=== PATIENT | male | born 1945 | race Caucasian/White ===

== ENCOUNTER 2020-07-24 20:53 | Inpatient (IN) | payer MEDICARE, SELFPAY ==
--- NOTE | ~2020-07-24 | CT_ITS ---
EXAMINATION: CT chest high resolution wo vt DATE: 07/24/2020 22:35 INDICATION: Altered mental status, cough and fever TECHNIQUE: Computed tomography (CT) of the chest was performed without intravenous contrast. The dose -length product was 322.96 mGy-cm. Automated exposure control and iterative reconstruction technique were employed. COMPARISON: CT dated 02/04/2018 FINDINGS: Large hiatal hernia. Heart size normal. No significant pleural effusion. Mild emphysema. No endobronchial lesions. Dependent atelectasis. There are scattered calcified granulomas. There is api tory pleural thickening/scarring. No acute focal pneumonia. No pneumothorax. There are accessory splen ules in the left upper abdomen. Small pericardial effusion. There is pancreatic atrophy. There is a l ow-density lesion in the left hepatic lobe, most likely benign cyst or hemangioma. IMPRESSION: 1. No acute cardiopulmonary disease. 2: Large hiatal hernia. Reviewed, dictated and finalized at location A. IMEN ACCESSIONER
--- NOTE | ~2020-07-24 | CT_ITS ---
EXAMINATION: CT BRAIN W/O DATE: 07/24/2020 22:35 INDICATION: Altered mental status TECHNIQUE: Computed tomography (CT) of the head was performed without intravenous contrast. The dose- length product was 605.33 mGy-cm. Automated exposure control and iterative reconstruction technique w ere employed. COMPARISON: No prior studies for comparison. FINDINGS: Normal brain parenchymal volume for age. Normal cespedes-white differentiation. No acute intrac ranial hemorrhage, infarction, mass or mass effect. No ventriculomegaly or midline shift. Midline sagittal images demonstrate a normal corpus callosum, c raniovertebral junction and sella turcica. Basilar cisterns are patent. Paranasal sinuses and mastoids are pneumatized. No depressed skull fractures. IMPRESSION: 1. No acute intracranial abnormality. Reviewed, dictated and finalized at location A. CLERK
[2020-07-24 20:51] VITALS: BP 106/58; PULSE 94; RESP 16; TEMP 38.6; O2SAT 92
--- NOTE | 2020-07-24 21:02 | ECG_ITS ---
Measurements Intervals [place] Rate: 102 P: 58 [place]: 146 QRS: -8 QRSD: 78 T: 57 QT: 328 QTc: 428 Interpretive Statements SINUS TACHYCARDIA LOW QRS VOLTAGE IN LIMB LEADS BASELINE ARTIFACT- I, II, AVR, AVL, AVF, V1 BORDERLINE ECG Electronically Signed On 07-25-2020 7:16:18 WATCH ELECTRICIAN by Alex Coleman D.O.
--- NOTE | 2020-07-24 21:33 | ED.AMS ---
HPI - Altered Mental Status General Chief Complaint: Urogenital-Male Stated Complaint: ams, fever Time Seen by Provider: 07/24/20 21:09 Source: EMS Mode of arrival: EMS Limitations: altered mental status History of Present Illness HPI narrative: Patient is a 75-year-old male brought in by EMS due to confusion and dysuria. Patient's confusion now resolved, son states that he is back to his baseline self, he is alert and oriented x4 on exam. Patient states that he has been having increased urinary frequency and dysuria for the past few days. Patient states he had chills earlier today. Patient denies any headache, dizziness, chest pain, shortness of breath, cough, dull pain, nausea, vomiting, or diarrhea. Related Data Allergies Allergy/AdvReac Type Severity Reaction Status Date / Time lipstick Allergy Mild rash Uncoded 09/11/18 00:01 Review of Systems Review of Systems: All systems reviewed & are unremarkable except as noted in HPI and below Constitutional: Constitutional: Denies body ache(s), Denies chills, Denies excessive sweating, Denies fatigue, Denies fever(s), Denies headache(s), Denies lethargy, Denies malaise, Denies weakness and Denies weight loss Eyes: Eyes: Denies blurry vision, Denies change in vision and Denies loss of vision ENT: Denies dizziness, Denies ear discharge, Denies headache(s), Denies lip swelling, Denies epistaxis, Denies nasal congestion, Denies neck pain, Denies throat swelling and Denies tongue swelling Cardiovascular: Cardiovascular: Denies chest pain, Denies chest pain at rest, Denies chest pain with activity, Denies diaphoresis, Denies rapid heart rate, Denies edema, Denies irregular heart rhythm, Denies lightheadedness, Denies palpitations, Denies dyspnea and Denies dyspnea on exertion Respiratory: Respiratory: Denies chest congestion, Denies cough, Denies hemoptysis, Denies dyspnea and Denies dyspnea on exertion Gastrointestinal: Gastrointestinal: Denies abdominal pain, Denies melena, Denies hematochezia, Denies diarrhea, Denies nausea, Denies vomiting and Denies hematemesis Musculoskeletal: Musculoskeletal: Denies abnormal gait, Denies deformity, Denies joint swelling, Denies limited range of motion, Denies neck pain and Denies numbness Neurologic: Denies Abnormal speech present, Denies abnormal gait, Denies confusion, Denies dizziness, Denies headache(s), Denies focal weakness, Denies loss of vision, Denies numbness, Denies Other visual disturbances, Denies Sensory deficit (Neuro) and Denies weakness Psychiatric: Psychiatric: Denies confusion, Denies depression, Denies auditory hallucinations, Denies homicidal ideation and Denies suicidal ideation Endocrine: Endocrine: Denies cold intolerance, Denies excessive sweating, Denies fatigue, Denies heat intolerance and Denies palpitations Hematologic/Lymphatic: Hematologic/Lymphatic: Denies easy bleeding and Denies easy bruising Allergic/Immunologic: Allergic/Immunologic: Denies lip swelling, Denies throat swelling and Denies tongue swelling PMFSH Family History Family History Sibling Family history of malignant neoplasm Mother Family history of Parkinson's disease Father Family history of malignant neoplasm of urinary bladder Exam Const: General: cooperative, healthy appearing, comfortable, no acute distress, well developed, alert and awake Orientation/consciousness: oriented to person, patient oriented x3 and No confusion Limitations: no limitations HENMT: Head: normal to inspection, normocephalic and atraumatic Ears: hearing grossly normal bilaterally, TM normal on the right and TM normal on the left General nose exam: Normal external nose present, Normal nares present and No nasal discharge present Face and sinus: normal facial exam Mouth: Yes Normal oral and palatal mucosa present, Yes lip normal, Yes tongue normal and Yes oropharynx normal Throat: posterior oropharynx normal, tonsils n
[2020-07-24 21:34] LABS: Basophils Percent Auto 0.2 % (0.2-1.2); Hematocrit 39.8 % (42.0-52.0); Immature Granulocyte Absolute 0.11 K/mm3 (0.00-0.031); Immature Granulocyte Percent A 0.4 % (0-0.5); Lymphocytes Absolute Auto 16.86 K/mm3 (0.9-3.2); Lymphocytes Percent Auto 64.7 % (18.3-44.2); Mean Corpuscular HGB Conc 32.7 g/dl (32-36); Mean Corpuscular Hemoglobin 34.1 pg (26-34); Mean Corpuscular Volume 104.5 fl (80-100); Mean Platelet Volume 8.6 fl (7.4-10.4); Monocytes Absolute Auto 0.5 K/mm3 (0.1-0.6); Monocytes Percent Auto 1.9 % (2.6-8.5); Neutrophils Absolute Auto 8.5 K/mm3 (1.3-6.7); Neutrophils Percent Auto 32.8 % (45.5-73.1); Nucleated Red Blood Cells Perc 0.1 % (0.0-0.2); Platelet Count Result 109 k/mm3 (150-375); Red Blood Count 3.81 M/mm3 (4.6-6.20); Red Cell Distribution Width 13.2 % (11.5-14.5); White Blood Count 26.1 K/mm3 (4.5-10.0)
[2020-07-24 21:43] LABS: Alanine Aminotransferase 20 U/L (4-50); Albumin Level 3.7 g/dL (3.5-5.1); Alkaline Phosphatase 75 U/L (38-126); Anion Gap 5 mmol/L (8-16); Aspartate Amino Transferase 29 U/L (17-59); Bilirubin,Total 2.6 mg/dL (0.2-1.3); Blood Urea Nitrogen 17 mg/dL (9-20); Calcium 8.7 mg/dL (8.4-10.2); Carbon Dioxide 27 mmol/L (22-30); Chloride 102 mmol/L (98-107); Estimated CRCL calculation 67 ml/min; Estimated Glomerular Filt Rate > 60; Glucose 148 mg/dL (75-110); Potassium 4.2 mmol/L (3.4-5.0); Sodium 134 mmol/L (137-145)
[2020-07-24 21:56] VITALS: BP 98/53; PULSE 88; RESP 17; O2SAT 93
[2020-07-24] MEDS: LACTATED RINGERS 1,000 ML 999 ML IV CONT ×2 (21:56→23:48)
[2020-07-24 21:58] LABS: Platelet Estimate Decreased (Adequate)
[2020-07-24 21:59] LABS: Atypical Lymphocytes Present; Smudge Cells FEW; Stomatocytes 1+ (NORMAL)
[2020-07-24 22:24] LABS: Lactic Acid Reflex 1.3 mmol/L (0.7-2.1)
[2020-07-24 23:53] VITALS: PULSE 66; RESP 16; O2SAT 100
[2020-07-25] VITALS (7 sets, daily range): BP systolic 96–123; BP diastolic 42–63; PULSE 69–86; RESP 16–20; TEMP 37.2–38.2; O2SAT 92–96; BMI 25.2
[2020-07-25 00:15] LABS: Add Urine Microscopic? YES; Appearance Urine Clear (Clear); Bilirubin Urine Negative (Negative); Blood Urine 2+ (Negative); Color Urine Yellow (Yellow); Glucose Urine UA Negative (Negative); Ketones Urine Negative (Negative); Leukocyte Esterase Ur 2+ LEU/UL (Negative); Mucus Urine Rare /lpf; Nitrate Urine Positive (Negative); Protein Urine 1+ mg/dL (Negative); Specific Grav Ur 1.014 (1.001-1.035); Urobilinogen Urine Negative mg/dL (<2.0); WBC Urine 51-75 /hpf
[2020-07-25] MEDS: ACETAMINOPHEN 325 MG TABLET 650 MG PO (00:43)
[2020-07-25] MEDS: LACTATED RINGERS 1,000 ML 125 ML IV CONT ×2 (02:57→10:57)
--- NOTE | 2020-07-25 03:49 | PM.IMHP ---
H&P: HPI History of Present Illness Date/Time: 07/25/20 03:49 Chief Complaint: acute altered mental status Narrative: This is a pleasant 75 year old with known history of depression, anxiety, and glaucoma who presented to the hospital tonight secondary to confusion and dysuria. The patient has had foul smelling urine, urinary frequency, and dysuria for the past 3 days. He isn't sure if he has fever or not. He remembers that today he was confused and his son called EMS. He remembers going to the [employer] and buying food and forgetting it in his car which is unlike him. He told his son several hours later that the food was still in the car including ice cream. The patient was found to be septic with leukocytosis of 26,100 and fever. Urinalysis was grossly abnormal. He denies any headache, dizziness, chest pain, palpitations, shortness of breath, cough, nausea, vomiting, or diarrhea. No other complaints. Currently the patient is back to his mental baseline and is oriented x3. He also acknowledges that he was confused earlier. Review of Systems Review of Systems: All systems reviewed & are unremarkable except as noted in HPI and below PMFSH Past Medical History Medical History (Updated 07/25/20 @ 04:11 by Alvin Gabriel MD) Anxiety and depression Glaucoma Family History Family History Sibling Family history of malignant neoplasm Mother Family history of Parkinson's disease Father Family history of malignant neoplasm of urinary bladder Social History Social History Smoking status: Former smoker Alcohol intake: current Substance use: never Spiritual care concerns: No Meds Home Medications and Allergies Home Medications Medication Instructions Recorded Confirmed Type citalopram 20 mg PO DAILY 07/25/20 07/25/20 History dorzolamide 1 drp RIGHT EYE BID 07/25/20 07/25/20 History latanoprost 1 drp EACH EYE DAILY 07/25/20 07/25/20 History vitamins A,C,W-ulmp-zuscaq 2 cap PO DAILY 07/25/20 07/25/20 History [PreserVision AREDS] Allergies Allergy/AdvReac Type Severity Reaction Status Date / Time lipstick Allergy Mild rash Uncoded 09/11/18 00:01 Vital Signs Vital Signs - 24 hr 07/24/20 20:51 07/24/20 21:56 07/24/20 23:53 Temperature 38.6 C H Pulse Rate 94 88 66 Respiratory Rate 16 17 16 Blood Pressure 106/58 L 98/53 L Pulse Oximetry 92 93 100 07/25/20 00:00 07/25/20 02:07 07/25/20 02:20 Temperature 37.7 C H 37.2 C Pulse Rate 84 74 86 Respiratory Rate 16 16 16 Blood Pressure 103/52 L 96/53 L 117/55 L Pulse Oximetry 96 95 96 Exam Const: General: cooperative, no acute distress, alert and awake Nutritional Appearance: well nourished Orientation/consciousness: patient oriented x3 HENMT: Head: normal to inspection General nose exam: Normal external nose present Face and sinus: normal facial exam Mouth: Yes Normal oral and palatal mucosa present and Yes oropharynx normal Eyes: Pupils: Equal, round and reactive pupils present EOM: EOMs intact bilaterally Neck: Neck: supple and no JVD Thyroid: thyroid normal Lymphatic: lymphadenopathy not noted Resp: Effort & Inspection: normal respiratory effort Auscultation: clear to auscultation bilaterally Cardio: Rate: regular rate Rhythm: regular rhythm Heart sounds: no murmurs GI: Inspection: normal to inspection Auscultation: normal bowel sounds Skin: General skin exam: normal color and no rashes or lesions noted Neuro: General: patient oriented x3 Cranial nerves: Yes CN's II-XII intact bilaterally and Yes Equal, round and reactive pupils present Speech: normal speech Motor exam (neuro): 5/5 motor strength present throughout Sensory Exam: normal sensation Extrem: General: normal to inspection and no edema Psych: Mental Status: mental status grossly normal Affect: normal affect H&P: Results Labs
[2020-07-25 06:20] LABS: Hematocrit 39.2 % (42.0-52.0); Hemoglobin 12.4 g/dL (14.0-18.0); Mean Corpuscular HGB Conc 31.6 g/dl (32-36); Mean Corpuscular Hemoglobin 33.9 pg (26-34); Mean Corpuscular Volume 107.1 fl (80-100); Mean Platelet Volume 9.2 fl (7.4-10.4); Platelet Count Result 108 k/mm3 (150-375); Red Blood Count 3.66 M/mm3 (4.6-6.20); Red Cell Distribution Width 13.3 % (11.5-14.5); White Blood Count 27.5 K/mm3 (4.5-10.0)
[2020-07-25 06:29] LABS: Anion Gap 3 mmol/L (8-16); Blood Urea Nitrogen 18 mg/dL (9-20); Calcium 8.4 mg/dL (8.4-10.2); Carbon Dioxide 30 mmol/L (22-30); Chloride 101 mmol/L (98-107); Estimated CRCL calculation 62 ml/min; Estimated Glomerular Filt Rate > 60; Glucose 122 mg/dL (75-110); Magnesium 1.7 mg/dL (1.6-2.3); Potassium 4.3 mmol/L (3.4-5.0); Sodium 134 mmol/L (137-145)
[2020-07-25 07:09] LABS: Band Neutrophils Percent 2 % (0-6); Basophils Absolute Manual 0.27 K/mm3 (0.0-0.1); Basophils Percent Manual 1 % (0-1); Lymphocytes Absolute Manual 15.67 K/mm3 (1.1-4.5); Monocytes Absolute Manual 1.65 K/mm3 (0.1-0.90); Monocytes Percent Manual 6 % (3-9); Neutrophils Percent Manual 34 % (46-73); Total Cells Counted 100
[2020-07-25 07:10] LABS: Atypical Lymphocytes Present
[2020-07-25 07:11] LABS: Platelet Estimate Adequate (Adequate)
[2020-07-25 07:14] LABS: Smudge Cells PRESENT; Stomatocytes 1+ (NORMAL)
[2020-07-25] MEDS: CITALOPRAM HYDROBROMIDE 20 MG TABLET PO (09:52)
[2020-07-25] MEDS: OPTI-GEN TAB 2 TABLET PO (09:52)
[2020-07-25] MEDS: DORZOLAMIDE HCL 2% OPHTH DROPS 1 DROP RIGHT EYE ×2 (09:53→17:13)
[2020-07-25] MEDS: LATANOPROST 0.005% OP SOLN 2.5 ML BTL 1 DROP EACH EYE (09:53)
--- NOTE | 2020-07-25 11:43 | PM.IMPN ---
Progress Note: A&P Assessment and Plan (1) Metabolic encephalopathy: Code(s): G93.41 - Metabolic encephalopathy Status: Acute Assessment and Plan: Currently resolved and likely secondary to urinary tract infection. CT brain was unremarkable for acute pathology. He is feeling much better today after IV fluids and antibiotics were started Continue monitoring. Continue neurochecks. (2) Sepsis: Qualifiers: Sepsis acute organ dysfunction status: with acute organ dysfunction Sepsis type: sepsis due to unspecified organism Severe sepsis acute organ dysfunction type: encephalopathy Severe sepsis shock status: without septic shock Qualified Code(s): A41.9 - Sepsis, unspecified organism; R65.20 - Severe sepsis without septic shock; G93.40 - Encephalopathy, unspecified Code(s): A41.9 - Sepsis, unspecified organism Status: Acute Assessment and Plan: Sepsis criteria met with worsening leukocytosis, fever, in the setting of a UTI Patient had a fever this morning, with a stable leukocytosis in the setting of CLL history Blood pressure slightly low at 90 7/42. He is otherwise asymptomatic. Continue monitoring his vital sign and he will have to be fever free for 24-48 hours prior to discharge. Monitor vital signs and urine output. (3) Acute pyelonephritis: Code(s): N10 - Acute pyelonephritis Status: Acute Assessment and Plan: Patient had symptoms of a UTI with also associated nausea. He did not have any CVA tenderness Patient's symptoms are improving and he is feeling much better Continue IV antibiotics Continue IV antibiotics, urine culture and blood culture pending. (4) Macrocytic anemia: Code(s): D53.9 - Nutritional anemia, unspecified Status: Acute Assessment and Plan: No signs of acute blood loss. H&H stable. Unsure of his baseline. Will order Folic acid and Vitamin B12 Monitor H/H, transfuse prn. (5) Thrombocytopenia: Code(s): D69.6 - Thrombocytopenia, unspecified Status: Acute Assessment and Plan: Acute vs. chronic. Unsure his baseline. Follows up with ceramic tile installer. Monitor platelets, transfuse prn. (6) Elevated bilirubin: Code(s): R17 - Unspecified jaundice Status: Acute Assessment and Plan: Total bilirubin was elevated at 2.6. Will recheck in the morning along with direct bilirubin. He is not have any abdominal pain at this time. Continue monitoring. (7) Anxiety and depression: Code(s): F41.9 - Anxiety disorder, unspecified; F32.9 - Major depressive disorder, single episode, unspecified Status: Chronic Assessment and Plan: Continue celexa PO. (8) Glaucoma: Qualifiers: Glaucoma type: unspecified Laterality: unspecified laterality Qualified Code(s): H40.9 - Unspecified glaucoma Code(s): H40.9 - Unspecified glaucoma Status: Chronic Assessment and Plan: Continue glaucoma eye drops. Time Spent With Patient Time with patient: 25 - 35 minutes Subjective Date/time seen: 07/25/20 11:43 Interval history: Date of service 07/25/2020: He is feeling much better today. Denies any more confusion or urinary symptoms. He does still have dark urine. He denies any flank pain, fevers, chills, chest pain, shortness of breath, cough, nausea, vomiting, abdominal pain, leg swelling, calf pain or any other symptoms at this time. Review of Systems Review of Systems: All systems reviewed & are unremarkable except as noted in HPI and below Exam Narrative: Exam Narrati
--- NOTE | 2020-07-25 14:18 | PCPTNOTE ---
Attempted PT evaluation. Pt adamantly refusing evaluation stating he's independent and doesn't want to be charged for another therapy evaluation. Pt went on to say how pointless he thought his occupational therapy evaluation was and that therapy was only ordered so he doesn't joanne the hospital if he falls. Patient thoroughly educated on purpose of therapy evaluation and adamantly refusing. Zakia Su, DPT
--- NOTE | 2020-07-25 15:39 | PCPTNOTE ---
Attempted PT eval. Pt refused, states he is indep and does not need or want therapy. Will follow.
[2020-07-26] VITALS (7 sets, daily range): BP systolic 102–120; BP diastolic 55–69; PULSE 68–82; RESP 16–20; TEMP 36.4–37.6; O2SAT 95–97
[2020-07-26 06:10] LABS: Hematocrit 34.7 % (42.0-52.0); Hemoglobin 11.3 g/dL (14.0-18.0); Mean Corpuscular HGB Conc 32.6 g/dl (32-36); Mean Corpuscular Hemoglobin 34.3 pg (26-34); Mean Corpuscular Volume 105.5 fl (80-100); Mean Platelet Volume 9.1 fl (7.4-10.4); Platelet Count Result 97 k/mm3 (150-375); Red Blood Count 3.29 M/mm3 (4.6-6.20); Red Cell Distribution Width 13.2 % (11.5-14.5); White Blood Count 26.8 K/mm3 (4.5-10.0)
[2020-07-26 06:26] LABS: Alanine Aminotransferase 33 U/L (4-50); Alkaline Phosphatase 70 U/L (38-126); Anion Gap 1 mmol/L (8-16); Aspartate Amino Transferase 41 U/L (17-59); Bilirubin,Total 1.3 mg/dL (0.2-1.3); Blood Urea Nitrogen 15 mg/dL (9-20); Calcium 8.2 mg/dL (8.4-10.2); Carbon Dioxide 30 mmol/L (22-30); Chloride 102 mmol/L (98-107); Estimated CRCL calculation 62 ml/min; Estimated Glomerular Filt Rate > 60; Glucose 115 mg/dL (75-110); Potassium 4.2 mmol/L (3.4-5.0); Sodium 133 mmol/L (137-145)
[2020-07-26 07:30] LABS: Folic Acid 12.5 ng/mL (2.76->20)
[2020-07-26] MEDS: DORZOLAMIDE HCL 2% OPHTH DROPS 1 DROP RIGHT EYE ×2 (09:09→17:16)
[2020-07-26] MEDS: LATANOPROST 0.005% OP SOLN 2.5 ML BTL 1 DROP EACH EYE (09:09)
[2020-07-26] MEDS: CITALOPRAM HYDROBROMIDE 20 MG TABLET PO (09:10)
[2020-07-26] MEDS: OPTI-GEN TAB 2 TABLET PO (09:10)
[2020-07-26] MEDS: CYANOCOBALAMIN INJ 1,000 MCG/ML VIAL 1000 MCG IM (09:15)
[2020-07-26 09:56] LABS: Lactate Dehydrogenase 352 U/L (313-618)
--- NOTE | 2020-07-26 12:21 | PM.IMPN ---
Progress Note: A&P Assessment and Plan (1) Metabolic encephalopathy: Code(s): G93.41 - Metabolic encephalopathy Status: Acute Assessment and Plan: Currently resolved and likely secondary to urinary tract infection. CT brain was unremarkable for acute pathology. He is feeling much better today after IV fluids and antibiotics were started Continue monitoring. Continue neurochecks. (2) Sepsis: Qualifiers: Sepsis acute organ dysfunction status: with acute organ dysfunction Sepsis type: sepsis due to unspecified organism Severe sepsis acute organ dysfunction type: encephalopathy Severe sepsis shock status: without septic shock Qualified Code(s): A41.9 - Sepsis, unspecified organism; R65.20 - Severe sepsis without septic shock; G93.40 - Encephalopathy, unspecified Code(s): A41.9 - Sepsis, unspecified organism Status: Acute Assessment and Plan: Sepsis criteria met with worsening leukocytosis, fever, in the setting of a UTI Patient had a fever again last night. Stable leukocytosis in the setting of CLL history Blood pressure better. Continue monitoring his vital sign and he will have to be fever free for 24-48 hours prior to discharge. Monitor vital signs and urine output. (3) Acute pyelonephritis: Code(s): N10 - Acute pyelonephritis Status: Acute Assessment and Plan: Patient had symptoms of a UTI with also associated nausea. He did not have any CVA tenderness Patient's symptoms are improving and he is feeling much better His urine Culture came back negative, but I called [facility] and they have a Urine Culture that is growing >100,000 Gram Negative Rods. [facility] is suppose to call me with sensitivity report tomorrow Switched IV antibiotics to IV Ertapenem due to continued fevers, pending culture results Continue IV antibiotics, urine culture and blood culture pending. (4) Macrocytic anemia: Code(s): D53.9 - Nutritional anemia, unspecified Status: Acute Assessment and Plan: No signs of acute blood loss. H&H stable. Unsure of his baseline. Folic acid was normal Vitamin B12 was low Monitor H/H, transfuse prn. (5) Thrombocytopenia: Code(s): D69.6 - Thrombocytopenia, unspecified Status: Acute Assessment and Plan: Acute vs. chronic. Unsure his baseline. Follows up with technical system analyst. Monitor platelets, transfuse prn. (6) Elevated bilirubin: Code(s): R17 - Unspecified jaundice Status: Acute Assessment and Plan: Total bilirubin was elevated at 2.6. Repeat today was normal. Direct bilirubin was 0. He is not have any abdominal pain at this time. Continue monitoring. (7) Anxiety and depression: Code(s): F41.9 - Anxiety disorder, unspecified; F32.9 - Major depressive disorder, single episode, unspecified Status: Chronic Assessment and Plan: Continue celexa PO. (8) Glaucoma: Qualifiers: Glaucoma type: unspecified Laterality: unspecified laterality Qualified Code(s): H40.9 - Unspecified glaucoma Code(s): H40.9 - Unspecified glaucoma Status: Chronic Assessment and Plan: Continue glaucoma eye drops. Time Spent With Patient Time with patient: 25 - 35 minutes Subjective Date/time seen: 07/26/20 12:21 Interval history: Date of service 07/26/2020: He is feeling much better today. He still had a fever last night. He wants to go home. Denies any more confusion or urinary symptoms. His urine is more clear today. He denies any flank pain, fevers, chill
[2020-07-26] MEDS: ACETAMINOPHEN 325 MG TABLET 650 MG PO (14:56)
[2020-07-26] MEDS: ERTAPENEM 1 GM/NS 50 ML 1 GM/50 ML BAG IVPB (14:56)
--- NOTE | 2020-07-26 15:02 | PCPTNOTE ---
Attempted PT eval. Pt adamantly refusing therapy, states he is walking indep in room. Spoke w/ Neema VANCE regarding refusal and she agreed w/ DC PT.
--- NOTE | 2020-07-26 20:00 | PC.NURSE ---
Pt transferred from room 316 into room 258, report received from nurse. Pt oriented to room and instructed in use of call light. Pt has no complaint of pain or discomfort.
[2020-07-27 04:00] VITALS: BP 122/66; PULSE 74; RESP 18; TEMP 37.3; O2SAT 95
[2020-07-27 06:32] LABS: Hematocrit 35.6 % (42.0-52.0); Hemoglobin 11.6 g/dL (14.0-18.0); Mean Corpuscular HGB Conc 32.6 g/dl (32-36); Mean Corpuscular Hemoglobin 33.9 pg (26-34); Mean Corpuscular Volume 104.1 fl (80-100); Mean Platelet Volume 9.3 fl (7.4-10.4); Platelet Count Result 116 k/mm3 (150-375); Red Blood Count 3.42 M/mm3 (4.6-6.20); Red Cell Distribution Width 12.9 % (11.5-14.5); White Blood Count 23.1 K/mm3 (4.5-10.0)
[2020-07-27 07:57] VITALS: BP 120/60; PULSE 65; RESP 16; TEMP 37.1; O2SAT 96
[2020-07-27] MEDS: OPTI-GEN TAB 2 TABLET PO (08:54)
[2020-07-27] MEDS: CITALOPRAM HYDROBROMIDE 20 MG TABLET PO (08:54)
[2020-07-27] MEDS: LATANOPROST 0.005% OP SOLN 2.5 ML BTL 1 DROP EACH EYE (08:55)
[2020-07-27] MEDS: CYANOCOBALAMIN INJ 1,000 MCG/ML VIAL 1000 MCG IM (08:55)
[2020-07-27] MEDS: DORZOLAMIDE HCL 2% OPHTH DROPS 1 DROP RIGHT EYE (08:55)
--- NOTE | 2020-07-27 11:59 | PM.IMPN ---
Progress Note: A&P Assessment and Plan (1) Metabolic encephalopathy: Code(s): G93.41 - Metabolic encephalopathy Status: Acute Assessment and Plan: Currently resolved and likely secondary to urinary tract infection. CT brain was unremarkable for acute pathology. He is feeling much better today after IV fluids and antibiotics were started Continue monitoring. Continue neurochecks. (2) Sepsis: Qualifiers: Sepsis type: sepsis due to unspecified organism Sepsis acute organ dysfunction status: with acute organ dysfunction Severe sepsis acute organ dysfunction type: encephalopathy Severe sepsis shock status: without septic shock Qualified Code(s): A41.9 - Sepsis, unspecified organism; R65.20 - Severe sepsis without septic shock; G93.40 - Encephalopathy, unspecified Code(s): A41.9 - Sepsis, unspecified organism Status: Acute Assessment and Plan: Sepsis criteria met with worsening leukocytosis, fever, in the setting of a UTI Patient had a fever again last night. Stable leukocytosis in the setting of CLL history Blood pressure better. Continue monitoring his vital sign and he will have to be fever free for 24-48 hours prior to discharge. Monitor vital signs and urine output. (3) Acute pyelonephritis: Code(s): N10 - Acute pyelonephritis Status: Acute Assessment and Plan: Patient had symptoms of a UTI with also associated nausea. He did not have any CVA tenderness Patient's symptoms are improving and he is feeling much better His urine Culture came back negative, but I called [facility] and they have a Urine Culture that is growing >100,000 Gram Negative Rods. [facility] is suppose to call me with sensitivity report tomorrow Switched IV antibiotics to IV Ertapenem due to continued fevers, pending culture results Continue IV antibiotics, urine culture and blood culture pending. (4) Macrocytic anemia: Code(s): D53.9 - Nutritional anemia, unspecified Status: Acute Assessment and Plan: No signs of acute blood loss. H&H stable. Unsure of his baseline. Folic acid was normal Vitamin B12 was low Monitor H/H, transfuse prn. (5) Thrombocytopenia: Code(s): D69.6 - Thrombocytopenia, unspecified Status: Acute Assessment and Plan: Acute vs. chronic. Unsure his baseline. Follows up with zanjero. Monitor platelets, transfuse prn. (6) Elevated bilirubin: Code(s): R17 - Unspecified jaundice Status: Acute Assessment and Plan: Total bilirubin was elevated at 2.6. Repeat today was normal. Direct bilirubin was 0. He is not have any abdominal pain at this time. Continue monitoring. (7) Anxiety and depression: Code(s): F41.9 - Anxiety disorder, unspecified; F32.9 - Major depressive disorder, single episode, unspecified Status: Chronic Assessment and Plan: Continue celexa PO. (8) Glaucoma: Qualifiers: Glaucoma type: unspecified Laterality: unspecified laterality Qualified Code(s): H40.9 - Unspecified glaucoma Code(s): H40.9 - Unspecified glaucoma Status: Chronic Assessment and Plan: Continue glaucoma eye drops. Subjective Date/time seen: 07/27/20 11:59 Interval history: 75-year-old gentleman admitted 2/3 with foul-smelling urine fevers and confusion. Review of Systems Review of Systems: All systems reviewed & are unremarkable except as noted in HPI and below Exam Narrative: Exam Narrative: General: 75-year-old man sitting up in bed watching TV. Appea
--- NOTE | 2020-07-27 12:34 | PM.DS ---
DS: Admitting Diagnosis Admitting Diagnosis Admitting Diagnosis: UTI DS: Discharge Diagnosis Discharge Diagnosis (1) Sepsis: Qualifiers: Sepsis acute organ dysfunction status: with acute organ dysfunction Sepsis type: sepsis due to unspecified organism Severe sepsis acute organ dysfunction type: encephalopathy Severe sepsis shock status: without septic shock Qualified Code(s): A41.9 - Sepsis, unspecified organism; R65.20 - Severe sepsis without septic shock; G93.40 - Encephalopathy, unspecified Code(s): A41.9 - Sepsis, unspecified organism Status: Acute (2) Acute pyelonephritis: Code(s): N10 - Acute pyelonephritis Status: Acute (3) Metabolic encephalopathy: Code(s): G93.41 - Metabolic encephalopathy Status: Acute (4) Thrombocytopenia: Code(s): D69.6 - Thrombocytopenia, unspecified Status: Acute (5) Elevated bilirubin: Code(s): R17 - Unspecified jaundice Status: Acute (6) CLL (chronic lymphocytic leukemia): Code(s): C91.10 - Chronic lymphocytic leukemia of B-cell type not having achieved remission Status: Acute (7) Vitamin B12 deficiency: Code(s): E53.8 - Deficiency of other specified B group vitamins Status: Acute DS: Summary Hospital Course Reason for hospitalization: Fever and confusion Hospital Course: Admitted with fever and confusion. Initially treated with ceftriaxone. Switched ertapenem because of persistent elevated white count and fever. Defervesced by hospital day 3 with T-max 99.1?. Patient has underlying CLL with baseline white count [id number]. Urine culture from urology office grew pansensitive E coli. He was eating and drinking up and about without difficulty and wanting to go home. Note that during hospitalization B12 level was 268 and B12 replacement was initiated. Folic acid was added at discharge. Status at Discharge Functional status at discharge: independent ambulation Overall status at discharge: patient is progressing back to baseline Time Spent with Patient Time attestation: Total time spent providing and/or coordinating discharge services: 41 min Exam Narrative: Exam Narrative: HEENT: PERRL, sclerae nonicteric, pharyngeal mucosa pink and intact NECK: No JVD CHEST: Clear to auscultation. Normal effort. HEART: NL S1/S2, regular, no murmur ABDOMEN: BS+, soft, nontender, no mass, no bruits EXTREMITIES: No cyanosis, edema, or clubbing NEUROLOGIC: CN intact and symmetric to inspection. MUSCULOSKELETAL: Tone and strength symmetric. PSYCH: Alert. Oriented to person, place, and time. DS: Data Data Completed and Pending Labs on day of discharge: Labs from last 24 hours 07/27/20 07/27/20 07/26/20 06:02 06:02 09:37 WBC 23.1 H RBC 3.42 L Hgb 11.6 L Hct 35.6 L MCV 104.1 H MCH 33.9 MCHC 32.6 RDW 12.9 Plt Count 116 L MPV 9.3 Sodium Pending Potassium Pending Chloride Pending Carbon Dioxide Pending Anion Gap Pending BUN Pending Creatinine Pending Estim Creat Clear Calc Pending Estimated GFR Pending Glucose Pending Calcium Pending Ferritin 142.00 C-Reactive Protein Pending Preliminary micro results at discharge 07/24/20 22:06 Blood Culture - Preliminary Blood 07/24/20 22:12 Blood Culture - Preliminary Blood Discharge Plan Discharge Consulting providers: Wes Hyman Discharging Clinician: Naren Kerr Patient Disposition: Home, Self-Care Activity: as tolerated Diet: regular Patient Instructions: Antibiotic Form, Urinary Tract Infection in Men (GEN) Stand Alone Forms: General Discharge Information Follow-up/Referrals: Carlo Pineda MD [Physician] - 1 Week (F/u UTI) Fawn,DO Temo [Primary Care Provider] - 2 Weeks Discharge Medications: New sulfamethoxazole-trimethoprim 800-160 mg tablet 1 tablet PO Q12H Qty: 14 RF: 0 folic acid 1 mg tablet
[2020-07-27 12:43] LABS: Anion Gap 5 mmol/L (8-16); Blood Urea Nitrogen 13 mg/dL (9-20); Calcium 8.3 mg/dL (8.4-10.2); Carbon Dioxide 27 mmol/L (22-30); Chloride 104 mmol/L (98-107); Estimated CRCL calculation 70 ml/min; Estimated Glomerular Filt Rate > 60; Glucose 108 mg/dL (75-110); Potassium 4.3 mmol/L (3.4-5.0); Sodium 136 mmol/L (137-145)
[2020-07-27] MEDS: ERTAPENEM 1 GM/NS 50 ML 1 GM/50 ML BAG IVPB (13:10)
== END 2020-07-27 14:40 | disposition home or self-care (01) | DRG 871 ==
LOC: ANHED 07-25 01:15 → ANH3MEDSUR 07-25 06:53 → ANH2MED 07-27 13:50 → ANH3MEDSUR 07-30 09:28
PROVIDERS: Emergency Medicine; Admitting Provider Family Medicine; Emergency Provider Emergency Medicine; PCP Student in an Organized Health Care Education/Training Program; Visit Provider Physician Assistant
DX: A41.9 Sepsis, unspecified organism (principal); G93.41 Metabolic encephalopathy; N10 Acute pyelonephritis; R17 Unspecified jaundice; C91.10 Chronic lymphocytic leukemia of B-cell type not having achieved remission; R65.20 Severe sepsis without septic shock; D69.6 Thrombocytopenia, unspecified; E53.8 Deficiency of other specified B group vitamins; F41.8 Other specified anxiety disorders; H40.9 Unspecified glaucoma; D53.9 Nutritional anemia, unspecified; Z87.891 Personal history of nicotine dependence
CPT/HCPCS: 36415; 70450; 71250; 80048; 80053; 81001; 82248; 82607; 82728; 82746; 83605; 83615; 83735; 85025; 85027; 86140; 87040; 87086; 93005; 96361; 96365; 96367; 97165; 99285; A9270; J0456; J0696; J1335; J3420; J7120